=== PATIENT | female | born 1950 | race African-American/Black ===

== ENCOUNTER 2023-04-25 13:54 | Emergency (ER) | payer MEDICARE ==
[2023-04-25] MEDS ORDERED: Ketorolac Tromethamine 30 MG/ML VIAL ONE (14:46)
[2023-04-25] MEDS ORDERED: predniSONE 20 MG TAB ONE (14:47)
== END 2023-04-25 15:05 | disposition home or self-care (01) ==
LOC: CSHERS 13:54
DX: G89.29 Other chronic pain (principal); M25.552 Pain in left hip; I10 Essential (primary) hypertension; I48.91 Unspecified atrial fibrillation; Z95.0 Presence of cardiac pacemaker; Z79.899 Other long term (current) drug therapy
CPT/HCPCS: 96372; J1885; J7512

== ENCOUNTER 2023-08-19 22:05 | Inpatient (IN) | payer MEDICARE ==
[2023-08-19] MEDS ORDERED: Prochlorperazine 10 MG/2 ML VIAL ONE (22:53)
[2023-08-19 23:10] LABS: Hematocrit 30.8 % (34.9-44.5); Hemoglobin 10.1 g/dL (12.0-15.5); Mean Corpuscular HGB CONC 32.8 g/dL (32.0-36.0); Mean Corpuscular Hemoglobin 33.2 pg (27.0-33.0); Mean Corpuscular Volume 101.3 fl (81.6-98.3); Mean Platelet Volume 10.2 fl (7.4-10.4); Platelet Count 176 10x3/uL (150-450); RBC Distribution Width 14.9 % (11.5-14.5); Red Blood Cell (RBC) Count 3.04 10x6/uL (3.90-5.03); White Blood Cell (WBC) Count 15.3 10x3/uL (3.5-10.5)
[2023-08-19 23:27] LABS: ALT (SGPT) 10 U/L (8-55); AST (SGOT) 24 U/L (5-34); Albumin 3.3 g/dL (3.4-4.8); Alkaline Phosphatase 101 U/L (40-110); Anion Gap 16 mmol/L (10-20); BUN (Urea Nitrogen) 15 mg/dL (9.8-20.1); Bilirubin, Total 1.3 mg/dL (0.2-1.2); Calc. Creatinine Clearance 0 mL/min (70-130); Carbon Dioxide 23 mmol/L (23-31); Chloride 103 mmol/L (98-107); Estimated GFR 51; Globulin 4.9 g/dL (2.4-3.5); Glucose 99 mg/dL (83-110); Potassium 3.7 mmol/L (3.5-5.1); Protein, Total 8.2 g/dL (5.8-8.1); Sodium 138 mmol/L (136-145)
[2023-08-19 23:35] LABS: Band 1 % (5-11); Lymphocytes 2 % (21-51); Monocytes 4 % (0-10); Reactive Lymphocytes 5 % (0-10)
[2023-08-19 23:38] LABS: Platelet Adequacy Comment Platelets Normal
[2023-08-19 23:43] LABS: MDiff Complete? YES
[2023-08-20 00:56] LABS: SARS-CoV-2 NAA Rapid Test Not Detected (NotDetected)
[2023-08-20 02:26] LABS: Bilirubin Neg (Negative); Blood, Urine 50 (Negative); Clarity Cloudy (Clear); Glucose, Urine (Dipstick) Normal (Negative); Ketone, Urine 15 mg/dL (Negative); Leukocyte 500 (Negative); Nitrite Positive (Negative); Protein, Urine (Dipstick) 30 mg/dl (Neg-Trace); Specific Gravity, Urine 1.015 (1.005-1.030)
[2023-08-20 02:32] LABS: Bacteria/HPF 2+ HPF (None Seen); CAUTI Indications for Culture Alt mental st,lethar; RBC/HPF 0-3 HPF (0-3); Squamous Epithelial 0-3 HPF (0-3); Urine Culture Reflex Yes Yes; WBC/HPF Greater than 50 HPF (0-3)
[2023-08-20] MEDS ORDERED: cefTRIAXone (ROCEPHIN) 2 GM VIAL ONE (02:43)
[2023-08-20] MEDS ORDERED: Bisacodyl 5 MG TAB PO PRN (02:52)
[2023-08-20] MEDS ORDERED: Ondansetron PF 4 MG/2 ML Vial IVP PRN (02:52)
[2023-08-20] MEDS ORDERED: Senokot S 8.6-50 MG TAB PO PRN (02:52)
[2023-08-20] MEDS ORDERED: Ondansetron ODT 4 MG TAB PO PRN (02:52)
[2023-08-20] MEDS ORDERED: Nitroglycerin 0.4 MG TAB (25 Tab Bottle) SL PRN (02:52)
[2023-08-20] MEDS ORDERED: Acetaminophen 325 MG TAB PO PRN (02:52)
[2023-08-20] MEDS ORDERED: Communication Order-Pharmacy FS ONE (02:52)
[2023-08-20] MEDS ORDERED: Acetaminophen 650 MG Suppository PR PRN (02:52)
[2023-08-20] MEDS ORDERED: Electrolyte Replacement Protocol 1 EACH FS SCH (03:00)
[2023-08-20] MEDS ORDERED: Sodium Chloride 0.9% 1,000 ML IV SCH ×2 (03:00→03:15)
[2023-08-20] MEDS ORDERED: Aspirin 325 MG TAB PO SCH (03:15)
[2023-08-20] MEDS ORDERED: Enoxaparin 120 MG/0.8 ML SYRINGE SC ONE (03:24)
[2023-08-20] MEDS ORDERED: Aspirin 325 MG TAB ONE (03:25)
[2023-08-20] MEDS ORDERED: Enoxaparin 120 MG/0.8 ML SYRINGE SC SCH (03:30)
[2023-08-20 05:30] LABS: Anion Gap 14 mmol/L (10-20); BUN (Urea Nitrogen) 14 mg/dL (9.8-20.1); Calc. Creatinine Clearance 0 mL/min (70-130); Calcium 8.3 mg/dL (7.8-10.44); Carbon Dioxide 22 mmol/L (23-31); Chloride 106 mmol/L (98-107); Estimated GFR 61; Glucose 91 mg/dL (83-110); Magnesium 1.7 mg/dL (1.6-2.6); Phosphorus 2.6 mg/dL (2.3-4.7); Potassium 3.4 mmol/L (3.5-5.1); Sodium 139 mmol/L (136-145)
[2023-08-20 05:35] LABS: #Monocytes 1.1 10x3/uL (0.0-1.1); #Neutrophils 11.4 10x3/uL (1.5-8.4); %Basophils 0.2 % (0.0-2.0); %Eosinophils 0.1 % (0.0-6.0); %Lymphocytes 7.6 % (18.0-47.0); %Neutrophils 83.3 % (40.0-75.0); Hemoglobin 9.3 g/dL (12.0-15.5); Mean Corpuscular HGB CONC 32.1 g/dL (32.0-36.0); Mean Corpuscular Hemoglobin 32.5 pg (27.0-33.0); Mean Corpuscular Volume 101.4 fl (81.6-98.3); Mean Platelet Volume 10.2 fl (7.4-10.4); Platelet Count 168 10x3/uL (150-450); RBC Distribution Width 14.8 % (11.5-14.5); Red Blood Cell (RBC) Count 2.86 10x6/uL (3.90-5.03); White Blood Cell (WBC) Count 13.7 10x3/uL (3.5-10.5)
[2023-08-20 05:38] LABS: Cardiac Risk 4.3 (Less than 4.5); Cholesterol 178 mg/dl (< 200 Desired); HDL Cholesterol 41 mg/dL (>60 Neg Risk); LDL Cholesterol, Calculated 124 mg/dL; Triglycerides 63 mg/dL (Less than 150)
[2023-08-20] MEDS: Sodium Chloride 0.9% 1,000 ML IV SCH ×3 (05:52→18:51)
[2023-08-20 06:41] LABS: Troponin I 0.314 ng/mL (< 0.028)
[2023-08-20] MEDS ORDERED: Magnesium 2 GM/50 ML(in water) 2 GM in Premix 1 BAG IVPB SCH (08:00)
[2023-08-20] MEDS ORDERED: Potassium Chloride 20 MEQ TAB PO SCH (08:00)
[2023-08-20] MEDS ORDERED: Aspirin 81 mg Enteric Coated Tablet ONE (08:35)
[2023-08-20] MEDS ORDERED: HYDROcodone/Acetaminophen 5/325 mg Tablet ONE (08:35)
[2023-08-20] MEDS ORDERED: Magnesium 2 GM/50 ML BAG (IN WATER) ONE (08:36)
[2023-08-20] MEDS ORDERED: Metoprolol Tartrate 25 MG TAB ONE (08:36)
[2023-08-20] MEDS ORDERED: Potassium Chloride 20 MEQ TAB ONE (08:36)
[2023-08-20] MEDS ORDERED: Folic Acid 1 MG TAB ONE (08:36)
[2023-08-20] MEDS: Folic Acid 1 MG TAB PO SCH (08:47)
[2023-08-20] MEDS: Aspirin Chewable 81 MG TAB PO SCH (08:47)
[2023-08-20] MEDS: Famotidine 20 MG TAB PO SCH ×2 (08:47→20:57)
[2023-08-20] MEDS: Metoprolol Tartrate 25 MG TAB PO SCH ×2 (08:48→20:57)
[2023-08-20] MEDS: HYDROcodone/Acetaminophen 5/325 mg Tablet PO PRN ×2 (08:48→20:07)
[2023-08-20] MEDS ORDERED: Metoprolol Tartrate 25 MG TAB PO SCH (09:00)
[2023-08-20] MEDS ORDERED: Potassium Bicarbonate/Cit Ac 20 MEQ TAB PO SCH (12:00)
[2023-08-20] MEDS ORDERED: Potassium Bicarbonate/Cit Ac 20 MEQ TAB ONE (12:46)
[2023-08-20] MEDS ORDERED: Enoxaparin 80 MG (0.8 mL) SYRINGE SC SCH (15:00)
[2023-08-20] MEDS: Apixaban 5 MG TAB PO SCH (20:57)
[2023-08-20] MEDS: Amiodarone 200 MG TAB PO SCH (20:57)
[2023-08-20 22:28] VITALS: BMI 48.6
[2023-08-21] MEDS: Sodium Chloride 0.9% 1,000 ML IV SCH ×2 (02:38→16:35)
[2023-08-21] MEDS: cefTRIAXone\\ROCEPHIN 2 GM in Sodium Chloride 0.9% 100 ML IVPB SCH (02:38)
[2023-08-21 05:28] LABS: #Eosinphils 0.2 10x3/uL (0.0-0.5); #Neutrophils 7.9 10x3/uL (1.5-8.4); %Basophils 0.3 % (0.0-2.0); %Eosinophils 1.5 % (0.0-6.0); %Lymphocytes 11.7 % (18.0-47.0); %Monocytes 9.6 % (0.0-10.0); %Neutrophils 76.4 % (40.0-75.0); Hematocrit 30.2 % (34.9-44.5); Hemoglobin 9.6 g/dL (12.0-15.5); Mean Corpuscular HGB CONC 31.8 g/dL (32.0-36.0); Mean Corpuscular Hemoglobin 32.4 pg (27.0-33.0); Mean Platelet Volume 10.4 fl (7.4-10.4); Platelet Count 174 10x3/uL (150-450); RBC Distribution Width 14.9 % (11.5-14.5); Red Blood Cell (RBC) Count 2.96 10x6/uL (3.90-5.03); White Blood Cell (WBC) Count 10.4 10x3/uL (3.5-10.5)
[2023-08-21 05:41] LABS: Anion Gap 14 mmol/L (10-20); BUN (Urea Nitrogen) 18 mg/dL (9.8-20.1); Calc. Creatinine Clearance 96 mL/min (70-130); Calcium 8.2 mg/dL (7.8-10.44); Carbon Dioxide 21 mmol/L (23-31); Chloride 107 mmol/L (98-107); Estimated GFR 56; Glucose 95 mg/dL (83-110); Magnesium 2.2 mg/dL (1.6-2.6); Potassium 4.5 mmol/L (3.5-5.1); Sodium 137 mmol/L (136-145)
[2023-08-21] MEDS: HYDROcodone/Acetaminophen 5/325 mg Tablet PO PRN ×3 (06:07→19:14)
[2023-08-21] MEDS: Famotidine 20 MG TAB PO SCH ×2 (09:09→21:23)
[2023-08-21] MEDS: Folic Acid 1 MG TAB PO SCH (09:09)
[2023-08-21] MEDS: Apixaban 5 MG TAB PO SCH ×2 (09:09→21:22)
[2023-08-21] MEDS: Aspirin Chewable 81 MG TAB PO SCH (09:09)
[2023-08-21] MEDS: Metoprolol Tartrate 25 MG TAB PO SCH ×2 (09:09→21:24)
[2023-08-21] MEDS: Amiodarone 200 MG TAB PO SCH (21:22)
[2023-08-22] MEDS: HYDROcodone/Acetaminophen 5/325 mg Tablet PO PRN ×5 (03:21→22:28)
[2023-08-22] MEDS: cefTRIAXone\\ROCEPHIN 2 GM in Sodium Chloride 0.9% 100 ML IVPB SCH (03:21)
[2023-08-22] MEDS: Sodium Chloride 0.9% 1,000 ML IV SCH ×2 (04:57→21:16)
[2023-08-22 05:51] LABS: #Eosinphils 0.3 10x3/uL (0.0-0.5); #Neutrophils 5.3 10x3/uL (1.5-8.4); %Basophils 0.5 % (0.0-2.0); %Eosinophils 4.1 % (0.0-6.0); %Lymphocytes 12.5 % (18.0-47.0); %Monocytes 12.6 % (0.0-10.0); %Neutrophils 69.9 % (40.0-75.0); Hematocrit 28.1 % (34.9-44.5); Hemoglobin 9.1 g/dL (12.0-15.5); Mean Corpuscular HGB CONC 32.4 g/dL (32.0-36.0); Mean Corpuscular Hemoglobin 33.3 pg (27.0-33.0); Mean Corpuscular Volume 102.9 fl (81.6-98.3); Mean Platelet Volume 10.3 fl (7.4-10.4); Platelet Count 166 10x3/uL (150-450); RBC Distribution Width 14.9 % (11.5-14.5); Red Blood Cell (RBC) Count 2.73 10x6/uL (3.90-5.03); White Blood Cell (WBC) Count 7.6 10x3/uL (3.5-10.5)
[2023-08-22 05:54] LABS: Anion Gap 13 mmol/L (10-20); BUN (Urea Nitrogen) 17 mg/dL (9.8-20.1); Calc. Creatinine Clearance 117 mL/min (70-130); Carbon Dioxide 19 mmol/L (23-31); Chloride 108 mmol/L (98-107); Estimated GFR 71; Glucose 100 mg/dL (83-110); Sodium 136 mmol/L (136-145)
[2023-08-22 08:49] LABS: Troponin I 0.121 ng/mL (< 0.028)
[2023-08-22] MEDS: Famotidine 20 MG TAB PO SCH ×2 (08:50→21:13)
[2023-08-22] MEDS: Folic Acid 1 MG TAB PO SCH (08:50)
[2023-08-22] MEDS: Metoprolol Tartrate 25 MG TAB PO SCH ×2 (08:50→21:56)
[2023-08-22] MEDS: Apixaban 5 MG TAB PO SCH ×2 (08:51→21:13)
[2023-08-22] MEDS: Aspirin Chewable 81 MG TAB PO SCH (08:51)
[2023-08-22] MEDS: Amiodarone 200 MG TAB PO SCH (21:13)
[2023-08-23] MEDS: cefTRIAXone\\ROCEPHIN 2 GM in Sodium Chloride 0.9% 100 ML IVPB SCH (02:50)
[2023-08-23 06:10] LABS: #Eosinphils 0.3 10x3/uL (0.0-0.5); #Monocytes 0.8 10x3/uL (0.0-1.1); #Neutrophils 3.7 10x3/uL (1.5-8.4); %Basophils 0.6 % (0.0-2.0); %Eosinophils 5.3 % (0.0-6.0); %Lymphocytes 20.9 % (18.0-47.0); %Monocytes 12.6 % (0.0-10.0); %Neutrophils 59.8 % (40.0-75.0); Hematocrit 30.4 % (34.9-44.5); Hemoglobin 9.7 g/dL (12.0-15.5); Mean Corpuscular HGB CONC 31.9 g/dL (32.0-36.0); Mean Corpuscular Hemoglobin 32.7 pg (27.0-33.0); Mean Corpuscular Volume 102.4 fl (81.6-98.3); Mean Platelet Volume 10.6 fl (7.4-10.4); Platelet Count 197 10x3/uL (150-450); RBC Distribution Width 14.9 % (11.5-14.5); Red Blood Cell (RBC) Count 2.97 10x6/uL (3.90-5.03); White Blood Cell (WBC) Count 6.3 10x3/uL (3.5-10.5)
[2023-08-23 06:13] LABS: Anion Gap 11 mmol/L (10-20); BUN (Urea Nitrogen) 16 mg/dL (9.8-20.1); Calc. Creatinine Clearance 118 mL/min (70-130); Calcium 8.3 mg/dL (7.8-10.44); Carbon Dioxide 22 mmol/L (23-31); Chloride 108 mmol/L (98-107); Estimated GFR 72; Glucose 104 mg/dL (83-110); Sodium 137 mmol/L (136-145)
[2023-08-23] MEDS: HYDROcodone/Acetaminophen 5/325 mg Tablet PO PRN ×3 (06:13→21:32)
[2023-08-23] MEDS ORDERED: Ketorolac Tromethamine 30 MG (1 mL) VIAL IVP PRN (07:28)
[2023-08-23] MEDS: Sodium Chloride 0.9% 1,000 ML IV SCH (09:45)
[2023-08-23] MEDS: Aspirin Chewable 81 MG TAB PO SCH ×2 (09:45→09:59)
[2023-08-23] MEDS: Metoprolol Tartrate 25 MG TAB PO SCH ×3 (09:45→21:29)
[2023-08-23] MEDS: Apixaban 5 MG TAB PO SCH ×2 (09:45→21:32)
[2023-08-23] MEDS: Famotidine 20 MG TAB PO SCH ×2 (09:45→21:32)
[2023-08-23] MEDS: Folic Acid 1 MG TAB PO SCH (09:45)
[2023-08-23] MEDS ORDERED: Senokot S 8.6-50 MG TAB PO SCH (10:30)
[2023-08-23] MEDS ORDERED: Polyethylene Glycol 3350 17 GM Packet PO SCH (11:00)
[2023-08-23 15:30] LABS: Bilirubin Neg (Negative); Blood, Urine 250 (Negative); Clarity Cloudy (Clear); Glucose, Urine (Dipstick) Normal (Negative); Ketone, Urine Negative (Negative); Leukocyte 500 (Negative); Nitrite Negative (Negative); Protein, Urine (Dipstick) 30 mg/dl (Neg-Trace); Specific Gravity, Urine 1.015 (1.005-1.030)
[2023-08-23 15:44] LABS: CAUTI Indications for Culture Pelvic or flank pain; WBC/HPF Greater than 50 HPF (0-3)
[2023-08-23 15:45] LABS: Bacteria/HPF 3+ HPF (None Seen)
[2023-08-23 15:46] LABS: Urine Culture Reflex Yes Yes
[2023-08-23] MEDS: Amiodarone 200 MG TAB PO SCH (21:32)
[2023-08-24] MEDS: cefTRIAXone\\ROCEPHIN 2 GM in Sodium Chloride 0.9% 100 ML IVPB SCH (03:54)
[2023-08-24 05:07] LABS: Anion Gap 12 mmol/L (10-20); BUN (Urea Nitrogen) 14 mg/dL (9.8-20.1); Calc. Creatinine Clearance 118 mL/min (70-130); Calcium 8.5 mg/dL (7.8-10.44); Carbon Dioxide 21 mmol/L (23-31); Chloride 109 mmol/L (98-107); Estimated GFR 72; Glucose 93 mg/dL (83-110); Sodium 138 mmol/L (136-145)
[2023-08-24 05:11] LABS: #Eosinphils 0.3 10x3/uL (0.0-0.5); #Monocytes 0.7 10x3/uL (0.0-1.1); #Neutrophils 3.4 10x3/uL (1.5-8.4); %Basophils 0.7 % (0.0-2.0); %Eosinophils 5.1 % (0.0-6.0); %Lymphocytes 27.1 % (18.0-47.0); %Monocytes 10.8 % (0.0-10.0); %Neutrophils 55.3 % (40.0-75.0); Mean Corpuscular HGB CONC 32.1 g/dL (32.0-36.0); Mean Corpuscular Hemoglobin 32.8 pg (27.0-33.0); Mean Corpuscular Volume 102.2 fl (81.6-98.3); Mean Platelet Volume 10.2 fl (7.4-10.4); Platelet Count 229 10x3/uL (150-450); Red Blood Cell (RBC) Count 2.74 10x6/uL (3.90-5.03); White Blood Cell (WBC) Count 6.1 10x3/uL (3.5-10.5)
[2023-08-24] MEDS ORDERED: Polyethylene Glycol 3350 17 GM Packet PO SCH (09:00)
[2023-08-24] MEDS: Folic Acid 1 MG TAB PO SCH (09:18)
[2023-08-24] MEDS: Famotidine 20 MG TAB PO SCH (09:18)
[2023-08-24] MEDS: Metoprolol Tartrate 25 MG TAB PO SCH (09:19)
[2023-08-24] MEDS: Apixaban 5 MG TAB PO SCH (09:19)
[2023-08-24] MEDS: Aspirin Chewable 81 MG TAB PO SCH (09:19)
[2023-08-24 13:44] VITALS: BP 124/92; TEMP 98.3
[2023-08-29] MEDS ORDERED: Ibuprofen 200 MG TAB PO PRN (07:25)
== END 2023-08-24 16:34 | disposition home or self-care (01) | DRG 871 ==
LOC: CSHERS 22:05 → OBSVTOIN 08-20 02:52 → CSHERHOLD 08-20 02:52 → CSHTELE 08-20 19:52
PROVIDERS: ADMIT Family Medicine; ATTEND Internal Medicine
DX: A41.51 Sepsis due to Escherichia coli [E. coli] (principal); I21.A1 Myocardial infarction type 2; N12 Tubulo-interstitial nephritis, not specified as acute or chronic; Z88.5 Allergy status to narcotic agent; Z88.8 Allergy status to other drugs, medicaments and biological substances; Z79.01 Long term (current) use of anticoagulants; Z79.899 Other long term (current) drug therapy; I48.91 Unspecified atrial fibrillation; Z96.653 Presence of artificial knee joint, bilateral; Z95.0 Presence of cardiac pacemaker; M10.9 Gout, unspecified; Z11.52 Encounter for screening for COVID-19; I12.9 Hypertensive chronic kidney disease with stage 1 through stage 4 chronic kidney disease, or unspecified chronic kidney disease; N18.31 Chronic kidney disease, stage 3a; D63.1 Anemia in chronic kidney disease
CPT/HCPCS: 36415; 70450; 71045; 72170; 80048; 80053; 80061; 81001; 83605; 83735; 84100; 84145; 84443; 84484; 85025; 87040; 87077; 87086; 87149; 87186; 93005; 93306; 93970; 96374; J0696; J0780; J1650; J1885; J2405; J3475; J3490; J7050

== ENCOUNTER 2023-09-25 14:21 | Outpatient (CLI) | payer MEDICARE | END 2023-09-25 14:22 | disposition home or self-care (01) | LOC: CSHULT 14:21 | PROVIDERS: ATTEND Family Medicine | DX: N18.30 Chronic kidney disease, stage 3 unspecified (principal); N32.89 Other specified disorders of bladder | CPT/HCPCS: 76770 ==